=== PATIENT | female | born 1985 | race Caucasian/White ===

== ENCOUNTER 2018-08-25 10:00 | Emergency (ER) | payer SELFPAY ==
[2018-08-25 10:02] VITALS: BP 132/76; PULSE 103; RESP 16; TEMP 36.6; O2SAT 98; BMI 24.5
--- NOTE | 2018-08-25 10:16 | US_ITS ---
STUDY: FIRST TRIMESTER OBSTETRICAL ULTRASOUND REASON FOR EXAM: Female, 33 years old. Bleeding. LMP: May 22, 2018. TECHNIQUE: Transabdominal TECHNICAL QUALITY: Adequate. PRIOR ULTRASOUND: None. FINDINGS: There is visualization of a single gestational sac in a normal intrauterine position. This contains a pole. A second saclike appearance is seen adjacent to the dominant sac measuring 4 cm x 4.87 x 2.5 cm. This may represent the remnant of a failed twin gestation. There is no demonstrated yolk sac. There is visualization of the placenta. There is visualization of a live embryo. The crown-rump length (CRL) measures 8.01 cm, indicating an estimated gestational age (EGA) of 14 weeks, 4 days. There is demonstrated cardiac activity with a heart rate of 152 bpm. The estimated gestation age (EGA) by LMP is 13 weeks, 4 days. The estimated date of delivery (PARDEEP) by LMP is February 26, 2019. The estimated gestation age (EGA) by US is 14 weeks, 4 days. The estimated date of delivery (PARDEEP) by US is February 19, 2019. The uterus measures 15.9 cm x 12.5 cm x 5.9 cm. There is no demonstrated uterine fibroid. The cervix is closed. The right ovary measures 2.5 cm x 2.6 x 1.4 cm. There is no right ovarian cyst. There is no visualized right adnexal mass or complex lesion. The left ovary measures 3.8 cm x 2.9 cm x 1.6 cm. There is no left ovarian cyst. There is no visualized left adnexal mass or complex lesion. There is no fluid in the cul de sac. US/Transvaginal w/Preg US IMPRESSION: Single live intrauterine gestation with a mean gestational age of 14 weeks and 4 days. 4 cm x 4.8 cm x 2.5 cm fluid collection adjacent to the fetus suggestive of a possible remanent of a failed twin gestation. Electronically Signed: Ayden Martini, at 13:29 EDT , Service support ,
--- NOTE | 2018-08-25 10:19 | ED.VISSUMM ---
- ER Visit Summary Date of Service: 08/25/18 Chief Complaint: Vaginal bleeding History of Present Illness: The patient is a 33 F who presents with vaginal bleeding that began early yesterday morning. Patient states it resolved during the day yesterday then returned again last night. Patient states she notices some blood when she wipes. Patient admits to some mild left lower quadrant abdominal pain. Patient denies any discharge. Patient states she is approximately 13 weeks . Patient states this is her third . Patient denies any nausea or vomiting. Patient denies any dysuria or frequency. Physical Examination: Vital signs are stable. Patient is afebrile. Patient is in no acute distress. Oral mucosa is pink and moist. Neck is supple. Trachea is midline. There is no JVD noted. Heart was regular rate and rhythm. Lungs are clear and equal bilateral. Abdomen is soft. Bowel sounds are normal. There is no tenderness. There is no guarding noted. Skin is warm dry. Cranial nerves II through XII are intact. There are no focal motor or sensory deficits noted. The remaining physical exam is within normal limits. Test Results: CBC was normal. Urinalysis does not show any evidence of urinary tract infection. Quantitative hCG was 60,557. Transvaginal ultrasound shows a single intrauterine at 14 weeks 4 days. heart rate was 152. There is a small fluid collection adjacent to the gestational sac which could have represented a failed twin . Emergency Department Course and Treatment: Patient was instructed on vaginal rest. Patient was instructed to follow-up with her [facility] in 5 to 7 days. Patient understood and was agreeable with the plan. All questions were answered. Disposition: Discharge home Impression: Threatened spontaneous This note was generated with [employer] dictation software. It may contain incorrect words, spelling, and punctuation that were not noted in review of the chart prior to signing ED Disposition - Plan for ED Patient: Disposition: Home or Assisted Living Diagnosis: Threatened spontaneous Instructions: ED Miscarriage Poss Referrals: Edvin De Jesus [Primary Care Provider] - 5-7 Days
[2018-08-25 10:38] LABS: Mucous, Urine 0 SEEN /hpf (<or=2+); White Blood Cells 0 SEEN /hpf (0-5)
[2018-08-25 10:42] LABS: Color, Urine Yellow (Yellow); Glucose, Dipstick Normal (Normal); Ketone-Dipstick Negative (Negative); Leukocyte Esterase-Dipstick Negative /ul (Negative); Nitrite-Dipstick Negative (Negative); Occult Blood-Urine 250 /ul (Negative); Protein-Dipstick Negative (Negative); Specific Gravity, Urine 1.005 (1.002-1.030); Urine Bilirubin Dipstick Negative (Negative); Urine Clarity Clear (Clear); Urine Urobilinogen Normal (Normal)
[2018-08-25 10:46] LABS: Bacteria RARE /hpf (None Seen); Red Blood Cells-Urine 0-5 SEEN /hpf (0-5); Squamous Epithelial Cells - UA 0-5 SEEN /hpf (5-10)
[2018-08-25 11:14] LABS: Absolute Lymphocyte Count 1.14 X10^3/ul (0.83-4.51); Basophil# 0.01 X10^3/uL; Basophil% 0.1 % (0-1); Eosinophil# 0.06 X10^3/uL; Eosinophils% 0.7 % (0-5); Hematocrit 42.3 % (37-47); Hemoglobin 14.4 g/dl (12.0-15.0); Lymphocyte # 1.14 X10^3/ul (4.0); Lymphocyte % 13.1 % (19-41); Mean Corpuscular Hgb 29.1 pg (27.0-32.0); Mean Corpuscular Volume 85.6 fL (81-99); Mean Platelet Vol. 9.7 fl (6.2-12.0); Monocyte# 0.49 X10^3/uL; Monocyte% 5.6 % (0-10); Neutrophil # 6.99 X10^3/uL (2.7-7.7); Neutrophil % 80.3 % (47-70); Platelet Count 188 K/mm3 (150-450); RBC Distribution Width CV 12.7 % (11.6-14.6); RBC Distribution Width SD 38.8 fl (35.1-43.9); Red Blood Count 4.94 M/mm3 (4.2-5.4); White Blood Count 8.7 K/mm3 (4.4-11.0)
[2018-08-25 11:15] LABS: POSITIVE COUNT NO; POSITIVE DIFFERENTIAL NO; POSITIVE MORPHOLOGY NO
[2018-08-25 13:30] VITALS: BP 129/74; PULSE 79; RESP 16; O2SAT 98
[2018-08-25 13:52] VITALS: BP 123/77; PULSE 62; RESP 15; O2SAT 100
== END 2018-08-25 13:53 | disposition home or self-care (01) ==
PROVIDERS: Emergency Provider Emergency Medicine; Family Provider Family Medicine; PCP Family Medicine
DX: O20.0 Threatened abortion (principal); Z3A.14 14 weeks gestation of pregnancy
CPT/HCPCS: 76817; 81001; 84702; 85025; 86900; 99283; A4216